=== PATIENT | female | born 1975 | race Caucasian/White ===

== ENCOUNTER → 2020-04-28 16:06 | Outpatient (CLI) | payer MEDICAID, SELFPAY | PROVIDERS: Visit Provider Family Medicine | DX: U07.1 COVID-19 (principal) | CPT/HCPCS: 87635; U0003 ==

== ENCOUNTER 2021-04-30 08:44 | Emergency (ER) | payer MEDICAID, SELFPAY ==
[2021-04-30 08:45] VITALS: BP 175/104; PULSE 101; RESP 18; TEMP 36.2; O2SAT 97; BMI 26.6
[2021-04-30 08:50] VITALS: PULSE 91; RESP 21; O2SAT 98
[2021-04-30 09:08] VITALS: O2SAT 99
--- NOTE | 2021-04-30 09:08 | EKG12_ITS ---
Test Reason : CP Blood Pressure : / mmHG Vent. Rate : 082 BPM Atrial Rate : 082 BPM P-R Int : 100 ms QRS Dur : 082 ms QT Int : 380 ms P-R-T Axes : -19 041 050 degrees QTc Int : 443 ms Sinus rhythm with short NC Otherwise normal ECG No previous ECGs available Confirmed by THEO GUAJARDO, MANUEL ([id number]), assignment desk editor ROSALES WAGNER ([id number]) on 05/05/2021 1:59:28 PM Referred By: BRYANT Confirmed By:MANUEL VENEGAS MD
--- NOTE | 2021-04-30 09:08 | RAD_ITS ---
STUDY: X-RAY CHEST REASON FOR EXAM: Female, 45 years old. Chest pain TECHNIQUE: PA and lateral views of the chest. COMPARISON: None. FINDINGS: EKG electrodes are seen. The lungs are clear and expanded. There is no demonstrated pleural abnormality. Normal size heart. Normal mediastinum and terence. Normal visualized pulmonary arteries. Normal visualized aortic arch and descending thoracic aorta. Normal visualized thoracic spine. Normal visualized ribs, clavicles, and shoulders. There is no demonstrated abnormality of the visualized soft tissue structures of the upper abdomen. RAD/Chest PA and Lateral IMPRESSION: Normal x-ray examination of the chest. Electronically Signed: Burak Watson MD at 9:41 EST , Service support ,
--- NOTE | 2021-04-30 09:08 | ED.VIS.CHEST ---
HPI History of Present Illness Chief Complaint: Chest Pain Informant: patient Narrative Narrative: Patient is a 45-year-old female that denies any significant past medical history presenting with chest pain. Patient states she has had chest pain off and on for over a year but has been worse over the past few days. She states that in the center of her chest. She states it feels more like heartburn. Pain generally last for couple minutes at a time and occur 3-4 times a day. It does not radiate. She became concerned as it occurred more frequently over the past few days and then she started having pain in her right hand which then change the tingling in her whole arm. She also developed tingling in her left arm but not as severe. She called her doctor's office recommend she come to the ER to make sure she is not having a heart attack. Patient know she also feels very anxious today. She feels short of breath but attributes that to her anxiety. She felt lightheaded while driving in here. She was a few weeks ago she had pain in her back with breathing but that is since resolved. She notes that she drinks daily, tolerably beer and 2 white claws. She denies any alcohol withdrawal symptoms if she does not have a drink. She notes she does not go to a doctor regularly. She states less time she was at the doctor was about a year ago when she was told her blood pressure was high but she never followed up further. She denies any tobacco use. She denies any history of DVT or PE. She denies any lower extremity edema. No other complaints at this time. Cannot think of any aggravating or alleviating factors. PFSH PFSH Medical History no medical history Home Medications famotidine [Pepcid] 20 mg PO BID #28 tab 04/30/21 [Rx Last Taken Unknown] Allergy/AdvReac Type Severity Reaction Status Date / Time No Known Allergies Allergy Verified 04/30/21 08:47 Family History no significant family his Surgical History no surgical history Social History Smoking Status: Former smoker ROS ROS ED Constitutional Constitutional ED: Denies chills or fever(s) Eyes Eyes: Denies blurry vision or change in vision ENT ENT ED: Denies rhinorrhea or sore throat Cardiovascular Cardiovascular: Reports chest pain; Denies palpitations or racing heartbeat Respiratory/Chest Respiratory/Chest: Denies cough or dyspnea Gastrointestinal Gastrointestinal: Denies abdominal pain, diarrhea, nausea or vomiting Genitourinary Genitourinary ED: Denies dysuria or hematuria Musculoskeletal Musculoskeletal: Denies arthralgias or myalgias Integumentary Denies rash Neurologic Neurologic: Reports paresthesias; Denies headache(s) or weakness Psychiatric Psychiatric: Reports anxiety; Denies depression EXAM Physical Exam Const Vital Signs: 04/30/21 08:45 04/30/21 08:50 04/30/21 09:08 Temperature 97.2 F L Temperature Source Temporal Pulse Rate 101 H 91 Respiratory Rate 18 21 H Blood Pressure 175/104 H Blood Pressure Mean 127 Pulse Ox 97 98 99 Oxygen Delivery Method Room Air Room Air Room Air 04/30/21 09:48 04/30/21 10:12 Temperature Temperature Source Pulse Rate 71 Respiratory Rate 16 16 Blood Pressure 155/100 H 163/96 H Blood Pressure Mean 118 118 Pulse Ox 99 96 Oxygen Delivery Method Room Air Room Air Positive well nourished and well developed General Appearance ED: well developed HEENT Reports moist mucous membranes normocephalic and atraumatic Eyes PERRL and EOMs intact bilaterally Neck no lymphadenopathy and supple Chest Wall inspection of chest normal Resp normal respiratory effort Effort and Inspection: respiratory distress Cardio regular rate, regular rhythm and no murmurs GI normal to inspection, nondistended, normoactive bowel sounds and non-tender Back/Spine no CVA tenderness Extremity normal to inspection General Extremety ED: Negative for edema or tenderness General Extremity: Negative for edema Neuro oriented x3 Sensorium / Orientation: awake and alert Motor Exam: Negative for general weakness Psych mental status grossly normal Mood & Affect: anxious Skin no rashes or lesions noted and no wounds Heart Score History: Slightly/Non-Suspicious ECG: Normal Age: </= 45 years Risk Factors: 1 or 2 Risk Factors Troponin: </= Normal Limit Score: 1 MDM MDM MDM Narrative Medical decision making narrative: Patient is evaluated for intermittent chest pain. Today she had an episode of numbness and tingling in her arm. I am not sure what to make of that. She is equal pulses. Her work-up is entirely normal. Her only risk factor for PE is her tachycardia. Her D-dimer is negative. TSH is normal. Has history troponin is normal. Given that this pain is been going on for quite some time I feel like a single high-sensitivity troponin rules out ACS. She does not have any acute ischemic changes on her EKG. I do question she could have a component of GI upset this causing her symptoms especially with her daily drinking. We will try her with a course of Pepcid. Is encouraged to follow-up with her primary care doctor for further cardiac evaluation as the cause of her symptoms is not clear. Patient verbalizes agreement understand this plan. Patient's hypertension improves without any intervention. I suspect that was more stress related. Lab Data Attestation: I reviewed the patient's lab results. Labs: Laboratory Results - last 24 hr 04/30/21 04/30/21 04/30/21 08:57 08:57 08:57 WBC 6.9 RBC 4.61 Hgb 14.1 Hct 41.8 MCV 90.7 MCH 30.6 MCHC 33.7 RDW Std Deviation 40.5 RDW Coeff of Jamila 12.2 Plt Count 266 MPV 8.9 Immature Gran % (Auto) 0.300 Neut % (Auto) 65.1 Lymph % (Auto) 24.6 [place] % (Auto) 7.5 Eos % (Auto) 2.2 Baso % (Auto) 0.3 Absolute Neuts (auto) 4.5 Absolute Lymphs (auto) 1.71 Nucleated RBC % 0 D-Dimer Quant (PE/DVT) <= 0.27 Sodium Potassium Chloride Carbon Dioxide Anion Gap BUN Creatinine Estim Creat Clear Calc Est GFR (MDRD) Af Amer Est GFR (MDRD) Non-Af BUN/Creatinine Ratio Glucose Calcium Total Bilirubin 0.70 Direct Bilirubin 0.14 AST 54 H ALT 80 H Alkaline Phosphatase 82 Troponin I High Sens Total Protein 8.5 H Albumin 4.3 Globulin 4.2 Lipase TSH 04/30/21 08:57 WBC RBC Hgb Hct MCV MCH MCHC RDW Std Deviation RDW Coeff of Jamila Plt Count MPV Immature Gran % (Auto) Neut % (Auto) Lymph % (Auto) [place] % (Auto) Eos % (Auto) Baso % (Auto) Absolute Neuts (auto) Absolute Lymphs (auto) Nucleated RBC % D-Dimer Quant (PE/DVT) Sodium 138 Potassium 4.1 Chloride 105 Carbon Dioxide 23.0 Anion Gap 10 BUN 9 Creatinine 0.89 Estim Creat Clear Calc 73.34 Est GFR (MDRD) Af Amer 89 Est GFR (MDRD) Non-Af 73 BUN/Creatinine Ratio 10.1 Glucose 92 Calcium 9.4 Total Bilirubin Direct Bilirubin AST ALT Alkaline Phosphatase Troponin I High Sens 5 Total Protein Albumin Globulin Lipase 92 TSH 2.54 Radiography Chest X-Ray - ED: 2 View, Read by ED Physician, Read by Radiologist, Normal and No Acute Disease Diagnostic Testing: Clinical Impression(s) from Imaging Studies Chest X-Ray 04/30/21 09:08 IMPRESSION: Normal x-ray examination of the chest. Electronically Signed: Burak Watson MD at 9:41 EST , Service support , Rhythm Strip Rhythm Strip: Sinus Rhythm Rate: 82 Ectopy: None EKG Initial EKG: Attestation: I personally reviewed and interpreted this EKG as follows: Interpretation: Sinus Rhythm Comments: Normal sinus rhythm at a rate of 82 MT interval is 100 Normal axis Normal QRS and QTc Normal ST segments Discharge Plan Triage Chief Complaint: Chest Pain ED Provider: Leigh Ann Monteiro Dx/Rx/DC Orders Clinical Impression: Chest pain, Elevated blood pressure reading Instructions: ED Chest Pain, Uncertain Cause Prescriptions: New famotidine [Pepcid] 20 mg tablet 20 mg PO BID Qty: 28 RF: 0 Primary Care Provider: Celio Farah Referrals: Celio Farah [Primary Care Provider] - Activity Restrictions/Additional Instructions: Please follow-up with your primary care doctor for further monitoring of your blood pressure and further evaluation of the cause of this pain. You are safe to go home at this time. Disposition Disposition: Home, Self Care
[2021-04-30 09:23] LABS: Absolute Lymphocyte Count 1.71 X10^3/uL (0.83-4.51); Absolute Neutrophil Count 4.5 X10^3/uL (2.0-7.7); Basophil# 0.02 X10^3/uL; Basophil% 0.3 % (0-1); Eosinophil# 0.15 X10^3/uL; Eosinophils% 2.2 % (0-5); Hematocrit 41.8 % (37-47); Hemoglobin 14.1 g/dL (12.0-15.0); Lymphocyte # 1.71 X10^3/ul (0.83-4.51); Lymphocyte % 24.6 % (19-41); Mean Corp Hgb Conc 33.7 g/dL (32-36); Mean Corpuscular Hgb 30.6 pg (27.0-32.0); Mean Corpuscular Volume 90.7 fL (81-99); Mean Platelet Vol. 8.9 fl (6.2-12.0); Monocyte# 0.52 X10^3/uL; Monocyte% 7.5 % (0-10); NRBC Flagged by Analyzer 0 % (0-5); Neutrophil # 4.52 X10^3/uL (2.7-7.7); Neutrophil % 65.1 % (47-70); Platelet Count 266 K/mm3 (150-450); RBC Distribution Width CV 12.2 % (11.6-14.6); RBC Distribution Width SD 40.5 fl (35.1-43.9); Red Blood Count 4.61 M/mm3 (4.2-5.4); White Blood Count 6.9 K/mm3 (4.4-11.0)
[2021-04-30 09:43] LABS: AST(SGOT) 54 U/L (15-37); Alanine Aminotransfer ALT/SGPT 80 U/L (13-56); Albumin, Serum 4.3 g/dL (3.2-5.0); Alkaline Phosphatase 82 U/L (45-117); Bilirubin, Direct 0.14 mg/dL (0.00-0.30); Globulin 4.2 g/dL (2.2-4.2); Protein, Total 8.5 g/dL (6.4-8.2)
[2021-04-30 09:47] LABS: Anion Gap 10 (5-15); BUN 9 mg/dL (7-18); BUN/Creat Ratio 10.1 RATIO (10-20); Calcium,Total 9.4 mg/dL (8.5-10.1); Chloride 105 mmol/L (98-107); Creatinine, Serum 0.89 mg/dL (0.55-1.02); EST Glomerular Filtration Rate 73 mL/min (>60); Est Glom Filt Rate - Afr Amer 89 mL/min (>60); Estimated Creatinine Clearance 73.34 ml/min; Glucose 92 mg/dL (74-106); Lipase 92 U/L (73-393); Potassium 4.1 mmol/L (3.5-5.1); Sodium Level 138 mmol/L (136-145); Thyroid Stim Hormone (TSH) 2.54 uIU/mL (0.358-3.74); Troponin-I HS 5 pg/mL (3.0-54.0)
[2021-04-30 09:48] VITALS: BP 155/100; PULSE 71; RESP 16; O2SAT 99
[2021-04-30 10:09] LABS: D-Dimer Quantitative (DVT/PE) <= 0.27 FEU/ug/m (0.27-0.49)
[2021-04-30 10:12] VITALS: BP 163/96; RESP 16; O2SAT 96
[2021-04-30 10:44] VITALS: BP 167/95; PULSE 82; RESP 22; O2SAT 100
== END 2021-04-30 10:49 | disposition home or self-care (01) ==
PROVIDERS: Emergency Provider Emergency Medicine
DX: R07.9 Chest pain, unspecified (principal); R03.0 Elevated blood-pressure reading, without diagnosis of hypertension; Z87.891 Personal history of nicotine dependence
CPT/HCPCS: 71046; 80048; 80076; 83690; 84443; 84484; 85025; 85379; 93005; 99285; A4216

== ENCOUNTER 2021-09-25 09:37 | Outpatient (CLI) | payer MEDICAID, SELFPAY ==
[2021-09-25 10:14] LABS: Hematocrit 38.3 % (37-47); Hemoglobin 12.8 g/dL (12.0-15.0); Mean Corp Hgb Conc 33.4 g/dL (32-36); Mean Corpuscular Hgb 31.9 pg (27.0-32.0); Mean Corpuscular Volume 95.5 fL (81-99); Platelet Count 351 K/mm3 (150-450); RBC Distribution Width CV 11.5 % (11.6-14.6); RBC Distribution Width SD 40.4 fl (35.1-43.9); Red Blood Count 4.01 M/mm3 (4.2-5.4); White Blood Count 9.5 K/mm3 (4.4-11.0)
[2021-09-25 10:33] LABS: AST(SGOT) 18 U/L (15-37); Alanine Aminotransfer ALT/SGPT 19 U/L (13-56); Alkaline Phosphatase 78 U/L (45-117); Anion Gap 6 (5-15); BUN 13 mg/dL (7-18); BUN/Creat Ratio 17.2 RATIO (10-20); Calcium,Total 8.1 mg/dL (8.5-10.1); Chloride 101 mmol/L (98-107); Cholesterol 260 mg/dL (200); Creatinine, Serum 0.76 mg/dL (0.55-1.02); EST Glomerular Filtration Rate 88 mL/min (>60); Est Glom Filt Rate - Afr Amer 107 mL/min (>60); Globulin 3.9 g/dL (2.2-4.2); Glucose 93 mg/dL (74-106); High Density Lipoprotein 80 mg/dL; Potassium 3.4 mmol/L (3.5-5.1); Protein, Total 7.9 g/dL (6.4-8.2); Sodium Level 134 mmol/L (136-145); Triglycerides 292 mg/dL; Very Low Density Lipoprotein 58 mg/dL (5-40)
== END 2021-09-25 23:59 | disposition home or self-care (01) ==
LOC: LAB 09:39
PROVIDERS: Referring Provider Registered Nurse; Visit Provider Registered Nurse
DX: I10 Essential (primary) hypertension (principal)
CPT/HCPCS: 36415; 80053; 80061; 85027

== ENCOUNTER → 2022-10-22 | Outpatient (CLI) | payer MEDICAID, SELFPAY ==
[2022-10-22 11:06] LABS: Anion Gap 8 (5-15); BUN 13 mg/dL (7-18); BUN/Creat Ratio 15.3 RATIO (10-20); Calcium,Total 9.1 mg/dL (8.5-10.1); Chloride 103 mmol/L (98-107); Cholesterol 301 mg/dL (200); Creatinine, Serum 0.85 mg/dL (0.55-1.02); EST Glomerular Filtration Rate 77 mL/min (>60); Est Glom Filt Rate - Afr Amer 93 mL/min (>60); Follicle Stimulating Hormone 64.7 mIU/mL; Glucose 91 mg/dL (74-106); High Density Lipoprotein 68 mg/dL; Luteinizing Hormone 25.6 mIU/mL; Potassium 4.1 mmol/L (3.5-5.1); Sodium Level 137 mmol/L (136-145); Triglycerides 693 mg/dL
[2022-10-29 12:09] LABS: Estrogen, Total, Serum 57 pg/mL (.)
== END | disposition home or self-care (01) ==
LOC: MFPLAB 09:34
PROVIDERS: PCP Family Medicine; Visit Provider Family Medicine
DX: N95.1 Menopausal and female climacteric states (principal); I10 Essential (primary) hypertension
CPT/HCPCS: 36415; 80048; 80061; 82672; 83001; 83002

== ENCOUNTER → 2023-02-16 | Outpatient (CLI) | payer MEDICAID, SELFPAY ==
[2023-02-16 16:33] LABS: Thyroid Stim Hormone (TSH) 3.59 uIU/mL (0.358-3.74)
== END | disposition home or self-care (01) ==
LOC: LAB 14:35
PROVIDERS: PCP Family Medicine; Referring Provider Internal Medicine Cardiovascular Disease; Visit Provider Internal Medicine Cardiovascular Disease
DX: R00.0 Tachycardia, unspecified (principal); I10 Essential (primary) hypertension
CPT/HCPCS: 36415; 84443

== ENCOUNTER → 2023-03-09 | Outpatient (CLI) | payer MEDICAID, SELFPAY ==
--- NOTE | 2023-03-09 10:51 | ECHOD_ITS ---
Reason For Study: Palps Procedure This was a 2D Doppler, Color Flow transthoracic echocardiogram. Exam performed in department. Left Ventricle Normal LV size. Left ventricular systolic function is normal. The estimated ejection fraction is 65 %. Normal diastology for age. No regional wall motion abnormalities noted. Right Ventricle Normal RV size. Normal systolic function. Atria Normal left atrium. Normal right atrium. Mitral Valve Normal mitral valve. Trivial eccentric mitral valve insufficiency. Tricuspid Valve Normal tricuspid valve. Mild tricuspid valve insufficiency. Pulmonary artery systolic pressure is 30 mmHg. Great Vessels Normal aortic root. The pulmonary artery is normal size. Normal inferior vena cava. Pericardium/Pleural No pericardial effusion. MMode/2D Measurements & Calculations LVIDd: 4.2 cm IVSd: 1.2 cm Ao root diam: 3.4 cm LVIDs: 2.4 cm LVPWd: 0.82 cm RVDd: 2.7 cm FS: 43.4 % LAV(MOD-bp): 36.9 ml LVAd ap4: 26.1 cm2 LVAd ap2: 24.7 cm2 LAV(MOD-bp) Indexed: 19.2 ml/m2 LVLd ap4: 7.8 cm LVLd ap2: 8.5 cm LAV(MOD-sp2): 34.2 ml EDV(MOD-sp4): 72.6 ml EDV(MOD-sp2): 62.4 ml LAV(MOD-sp4): 40.4 ml EDV(sp4-el): 74.6 ml EDV(sp2-el): 61.0 ml LVAs ap4: 14.0 cm2 LVAs ap2: 14.6 cm2 LVLs ap4: 6.3 cm LVLs ap2: 6.9 cm ESV(MOD-sp4): 26.7 ml ESV(MOD-sp2): 27.3 ml ESV(sp4-el): 26.6 ml ESV(sp2-el): 26.3 ml EF(MOD-sp4): 63.2 % EF(MOD-sp2): 56.2 % EF(sp4-el): 64.4 % SV(MOD-sp4): 45.8 ml SV(MOD-sp2): 35.1 ml SV(sp4-el): 48.0 ml LA A4 area: 15.2 cm2 LA dimension(2D): 3.2 cm RA A4 area: 10.4 cm2 TAPSE: 1.7 cm Time Measurements MV dec time: 0.28 sec Doppler Measurements & Calculations MV E max cody: 73.2 cm/sec Lat Peak E' Cody: 8.8 cm/sec Med Peak E' Cody: 8.9 cm/sec MV A max cody: 100.3 cm/sec E/E' lat: 8.3 E/E' med: 8.3 MV E/A: 0.73 MV dec slope: 259.0 cm/sec2 Ao V2 max: 145.9 cm/sec LV V1 max: 118.7 cm/sec Ao max P.5 mmHg LV V1 max P.6 mmHg PA V2 max: 95.8 cm/sec TR max cody: 252.2 cm/sec TR max P.4 mmHg ECHO/Echo Complete Interpretation Summary Normal LV size. Left ventricular systolic function is normal. The estimated ejection fraction is 65 %. Pulmonary artery systolic pressure is 30 mmHg. Ordering Physician: Chaka Ritter Referring Physician: Joey Dinero Performed By: Celeste Abraham RDCS
== END | disposition home or self-care (01) ==
LOC: CVS 10:50
PROVIDERS: PCP Family Medicine; Referring Provider Internal Medicine Cardiovascular Disease; Visit Provider Internal Medicine Cardiovascular Disease
DX: R00.0 Tachycardia, unspecified (principal)
CPT/HCPCS: 93306

== ENCOUNTER → 2023-12-06 | Outpatient (CLI) | payer MEDICAID, SELFPAY ==
[2023-12-06 12:34] LABS: Absolute Lymphocyte Count 1.65 X10^3/uL (0.83-4.51); Absolute Neutrophil Count 4.7 X10^3/uL (2.0-7.7); Basophil# 0.02 X10^3/uL; Basophil% 0.3 % (0-1); Eosinophil# 0.19 X10^3/uL; Eosinophils% 2.7 % (0-5); Hematocrit 42.3 % (37-47); Hemoglobin 13.7 g/dL (12.0-15.0); Lymphocyte # 1.65 X10^3/ul (0.83-4.51); Lymphocyte % 23.4 % (19-41); Mean Corp Hgb Conc 32.4 g/dL (32-36); Mean Corpuscular Hgb 30.1 pg (27.0-32.0); Mean Platelet Vol. 9.1 fl (6.2-12.0); Monocyte# 0.42 X10^3/uL; NRBC Flagged by Analyzer 0 % (0-5); Neutrophil # 4.74 X10^3/uL (2.7-7.7); Neutrophil % 67.3 % (47-70); Platelet Count 267 K/mm3 (150-450); RBC Distribution Width CV 12.1 % (11.6-14.6); RBC Distribution Width SD 41.1 fl (35.1-43.9); Red Blood Count 4.55 M/mm3 (4.2-5.4)
[2023-12-06 13:00] LABS: Vitamin D,25 Hydroxy 40.6 ng/mL
[2023-12-06 13:10] LABS: AST(SGOT) 20 U/L (15-37); Alanine Aminotransfer ALT/SGPT 26 U/L (13-56); Albumin, Serum 4.1 g/dL (3.2-5.0); Alkaline Phosphatase 92 U/L (45-117); Anion Gap 8 (5-15); BUN 13 mg/dL (7-18); BUN/Creat Ratio 15.5 RATIO (10-20); Calcium,Total 9.3 mg/dL (8.5-10.1); Chloride 102 mmol/L (98-107); Cholesterol 287 mg/dL (200); Creatinine, Serum 0.84 mg/dL (0.55-1.02); EST Glomerular Filtration Rate 77 mL/min (>60); Est Glom Filt Rate - Afr Amer 94 mL/min (>60); Glucose 96 mg/dL (74-106); High Density Lipoprotein 67 mg/dL; Potassium 3.6 mmol/L (3.5-5.1); Protein, Total 8.1 g/dL (6.4-8.2); Sodium Level 135 mmol/L (136-145); Thyroid Stim Hormone (TSH) 3.21 uIU/mL (0.358-3.74); Triglycerides 220 mg/dL; Very Low Density Lipoprotein 44 mg/dL (5-40)
[2023-12-06 13:48] LABS: Hemoglobin A1c 5.2 % (3.8-5.6)
== END | disposition home or self-care (01) ==
LOC: VSLAB 11:16
PROVIDERS: PCP Family Medicine; Visit Provider Nurse Practitioner Family
DX: I10 Essential (primary) hypertension (principal); E78.5 Hyperlipidemia, unspecified; E66.9 Obesity, unspecified; E55.9 Vitamin D deficiency, unspecified; S99.922A Unspecified injury of left foot, initial encounter
CPT/HCPCS: 36415; 80053; 80061; 82306; 83036; 84443; 85025

== ENCOUNTER → 2023-12-07 | Outpatient (CLI) | payer MEDICAID, SELFPAY ==
--- NOTE | 2023-12-07 07:24 | RAD_ITS ---
STUDY: X-RAY - LEFT FOOT CLINICAL: Female, 48 years old. Dropped something heavy on top of foot 11-13-23, continued pain top of foot. TECHNIQUE: 3 views of the left foot. COMPARISON: None. FINDINGS: Normal talus, calcaneus, and tarsal bones. Normal visualized subtalar, talonavicular, calcaneocuboid, tarsal and tarsometatarsal articulations. Normal metatarsi. Normal metatarsophalangeal joint of the great toe. Normal tibial and fibular sesamoid bones. Normal interphalangeal joint of the great toe. Normal phalanges of the great toe. Normal second through fifth metatarsophalangeal joints. Normal interphalangeal joints and phalanges of the lesser toes. The soft tissue structures are unremarkable. There is no demonstrated fracture. RAD/Foot min 3 Views IMPRESSION: Normal x-ray examination of the left foot. Electronically Signed: Lennox Reyes MD at 15:54 EDT ,
== END | disposition home or self-care (01) ==
LOC: RAD 07:15
PROVIDERS: PCP Nurse Practitioner Family; Referring Provider Nurse Practitioner Family; Visit Provider Nurse Practitioner Family
DX: S99.922A Unspecified injury of left foot, initial encounter (principal); X58.XXXA Exposure to other specified factors, initial encounter
CPT/HCPCS: 73630

== ENCOUNTER → 2024-01-16 | Outpatient (CLI) | payer MEDICAID, SELFPAY ==
--- NOTE | 2024-01-16 07:05 | BI_ITS ---
MAMMOGRAPHY - BILATERAL SCREENING REASON FOR EXAM: Female, 48 years old. Routine annual screening examination. PERTINENT HISTORY: Non-contributory. TECHNIQUE: Digital bilateral breast kaleigh (3D mammographic acquisition) in the CC and MLO projections. 2-D mediolateral oblique (MLO) and craniocaudad (CC) views of both breasts were obtained. CAD: Full Field Digital Mammography with Computer Added Detection was performed. COMPARISON: None. Baseline examination. FINDINGS: Breast Composition: There are scattered areas of fibroglandular density. There are no dominant masses or suspicious calcifications. No other significant abnormalities are identified. BI/SCRN MAMM (CAD)W/[place] BILAT IMPRESSION: Negative screening mammogram. Yearly followup mammogram recommended. (A) ASSESSMENT CATEGORY: BIRADS Category 1: Negative. A letter regarding these results will be sent to the patient by the facility within 30 days. Approximately 10% of breast cancers are not detected by mammography. A normal mammogram should not delay biopsy of a clinically suspicious abnormality. [id number] Electronically Signed: Burak Watson MD at 8:43 EDT ,
== END | disposition home or self-care (01) ==
LOC: OPBI 07:15
PROVIDERS: PCP Nurse Practitioner Family; Referring Provider Nurse Practitioner Family; Visit Provider Nurse Practitioner Family
DX: Z12.31 Encounter for screening mammogram for malignant neoplasm of breast (principal)
CPT/HCPCS: 77063; 77067

== ENCOUNTER 2024-01-20 06:53 | Day surgery (SDC) | payer MEDICAID, SELFPAY ==
[2024-01-20] VITALS (7 sets, daily range): BP systolic 97–136; BP diastolic 66–111; PULSE 73–82; RESP 16; TEMP 36.4–36.7; O2SAT 96–100; BMI 30.4
[2024-01-20] MEDS: Lactated Ringers 1,000 ML 15 ML IV (07:21)
--- NOTE | 2024-01-20 07:23 | PCM.PRE.AN2 ---
ASA Classification* ASA Classification ASA Classification: 2 Assessment & Plan Anesthesia* Anesthesia Assessment Anesthesia Assessment: Discussed sedation and/or anesthesia options, risks, benefits, and alternatives with patient/parents/legal guardian/POA. Questions invited. The patient/parents/legal guardian/POA seems to understand and agrees to proceed with anesthesia plan. Reviewed the physical assessment, medical history, allergy history and patient home medications list prior to surgery/procedure/anesthetic and documented any changes. Performed airway and anesthesia risk assessments. Anesthesia Type Anesthesia Type: MAC (see written pre anesthesia record for full assessment) Anesthesia Focused Assessment* Temperature: 97.6 F Pulse Rate: 82 Blood Pressure: 136/95 Respiratory Rate: 16 Pulse Ox: 99 Airway Assessment Mouth opens: >3 cm Mallampati Score: II Focused Labs Anesthesia Preop lab: CBC WBC 7.0 K/mm3 (4.4-11.0) 12/06/23 11:17 RBC 4.55 M/mm3 (4.2-5.4) 12/06/23 11:17 Hgb 13.7 g/dL (12.0-15.0) 12/06/23 11:17 Hct 42.3 % (37-47) 12/06/23 11:17 Plt Count 267 K/mm3 (150-450) 12/06/23 11:17 CHEMISTRY Potassium 3.6 mmol/L (3.5-5.1) 12/06/23 11:17 Sodium 135 mmol/L (136-145) L 12/06/23 11:17 BUN 13 mg/dL (7-18) 12/06/23 11:17 Creatinine 0.84 mg/dL (0.55-1.02) 12/06/23 11:17 Glucose 96 mg/dL (74-106) 12/06/23 11:17 TSH 3.21 uIU/mL (0.358-3.74) 12/06/23 11:17 COAG Pre-Assessment Diagnosis/Proposed Procedure Planned Operative Procedure(s): COLONOSCOPY-OA Anesthesia History 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 When Was Last Pacemaker Check QUESTION #4 FULL TEXT: You/Your Family Experience fever (hyperthermia) with Anesthesia Last Oral Intake Last Oral intake: Last Oral Intake NPO since 04:00 01/20/24 07:08 Meds taken in AM with sips of Yes 01/20/24 07:08 water? Meds patient instructed to see med list 01/20/24 07:08 take am of surgery PONV PONV - dust control engineer: PONV - dust control engineer Female Yes 01/17/24 13:21 HX of Motion Sickness Yes 01/17/24 13:21 HX of N/V After Surgery No 01/17/24 13:21 Non-Smoker Yes 01/17/24 13:21 Duration of Surgery greater No 01/17/24 13:21 than 60 minutes Number of Risk Factors 3 01/17/24 13:21 PONV Score Moderate Risk 01/17/24 13:21 Height & Weight Height & Weight: Anesthesia: Height & Weight Height 5 ft 5 in 01/20/24 07:08 Weight: 83 kg 01/20/24 07:08 Body Mass Index (BMI) 30.4 01/20/24 07:08 Respiratory Assessment Respiratory Assessment - dust control engineer: Respiratory Tract Infection Hx - dust control engineer Hx Respiratory Tract Infection No 01/17/24 13:21 STOP Sleep Apnea STOP Sleep Apnea - dust control engineer: STOP Sleep Apnea - dust control engineer Hx Hypertension Yes: CONTROLLED ON MED 01/17/24 13:21 Hx Sleep Apnea No 01/17/24 13:21 CPAP BIPAP Do you snore loudly (louder No 01/17/24 13:21 than talking or can be heard Do you often feel tired/ No 01/17/24 13:21 fatigued/ sleepy during daytime? Has anyone observed you stop No 01/17/24 13:21 breathing during sleep? STOP Results Negative 01/17/24 13:21 QUESTION #5 FULL TEXT : Do you snore loudly (louder than talking or can be heard through closed doors)? Tobacco Use History Tobacco Use History - dust control engineer: Tobacco Use History - dust control engineer Tobacco Use Smoking Status Former smoker 01/17/24 13:21 Hx Tobacco Use No 01/17/24 13:21 Years Smoking Packs Smoked per Day Smoking Cessation Date was No - quit smoking greater 01/17/24 13:21 within the last 15 years than 15 years ago Hx Smoking Cessation Date 06/13/99 01/17/24 13:21 Hx Smoking Cessation Counseling Hematologic Medial History Hematologic Hx - dust control engineer: Hematologic Medical Hx - risk officer Hx of Blood Transfusion No 01/17/24 13:21 Hx of Transfusion in last 3 No 01/17/24 13:21 Months Date of Last Transfusion (if within last 3 months) Ever experience any problems No 01/17/24 13:21 with transfusion(s)? Specify any problems Hx of Preganancy in last 3 No 01/17/24 13:21 Months Nurse Filling Out Transfusion VCHRISTIN 01/17/24 13:21 & Questions: Date: 01/17/24 01/17/24 13:21 Time: 13:22 01/17/24 13:21 Patient unable to answer at this time (ie. confused, unrespo /Reproduction History /Reproductive History - dust control engineer: /Reproductive Hx- dust control engineer Hx Now No 01/17/24 13:21 Gestational Age (in weeks): EDC: Hx Hx Para Hx Section SAB No 01/17/24 13:21 Active Medications Active Medications: Current Medications Generic Name Dose Route Start Last Admin Trade Name Freq PRN Reason Stop Dose Admin Lactated Ringer's 1,000 mls @ 15 mls/hr 01/20/24 07:00 01/20/24 07:21 IV 15 mls/hr .Q48H WILLIE Administration PFSH Medical History Hypertension Wears contact lenses Wears glasses Cancer Anxiety Alcohol use Syncope Gastric reflux Former smoker Asthma History of Holter monitoring History of echocardiogram Cardiology follow-up encounter Hyperlipidemia Depression Tachycardia Palpitations Essential hypertension Home Medications ?Medication ?Instructions ?Recorded ?Last Taken ?Type lisinopril 10 mg tablet 10 mg PO DAILY 12/16/22 01/20/24 History rosuvastatin 5 mg tablet 5 mg PO DAILY 02/16/23 Unknown History collagen,hydrolysate 500 mg-biotin 2 cap PO .QD 01/10/24 Unknown History 800 mcg-ascorbic acid 50 mg capsule (Collagen 1500 Plus C) propranolol 20 mg tablet 20 mg PO BID PRN anxiety 01/10/24 01/20/24 History sertraline 50 mg tablet 50 mg PO DAILY 01/10/24 Unknown History Allergy/AdvReac Type Severity Reaction Status Date / Time amoxicillin Allergy Unknown Hives Verified 01/20/24 07:08 Family History Grandfather Myocardial infarction Father Hypertension Surgical History Hx of wisdom tooth extraction History of tubal ligation Social History Smoking Status: Former smoker how long ago did patient quit smokin alcohol intake: current alcohol intake frequency: 3 or more drinks per day Alcohol type: beer and wine substance use type: does not use caffeine: Yes (2 times per week) Review of Systems (Anesthesia) ROS Narrative System reviewed and no additional complaints, except as documented.
--- NOTE | 2024-01-20 08:09 | HP.PCM_ITS ---
HPI - General HPI Narrative LEAH BURGER, is a 48 F who presents for screening colonoscopy. She has never had a colonoscopy in the past. She denies abdominal pain or blood in the stool but she does say she feels like she does not adequately empty when she has a bowel movement. She denies family history of colon cancer. [facility] Medical History Hypertension Wears contact lenses Wears glasses Cancer Anxiety Alcohol use Syncope Gastric reflux Former smoker Asthma History of Holter monitoring History of echocardiogram Cardiology follow-up encounter Hyperlipidemia Depression Tachycardia Palpitations Essential hypertension Home Medications ?Medication ?Instructions ?Recorded ?Last Taken ?Type lisinopril 10 mg tablet 10 mg PO DAILY 12/16/22 01/20/24 History rosuvastatin 5 mg tablet 5 mg PO DAILY 02/16/23 Unknown History collagen,hydrolysate 500 mg-biotin 2 cap PO .QD 01/10/24 Unknown History 800 mcg-ascorbic acid 50 mg capsule (Collagen 1500 Plus C) propranolol 20 mg tablet 20 mg PO BID PRN anxiety 01/10/24 01/20/24 History sertraline 50 mg tablet 50 mg PO DAILY 01/10/24 Unknown History Allergy/AdvReac Type Severity Reaction Status Date / Time amoxicillin Allergy Unknown Hives Verified 01/20/24 07:08 Family History Grandfather Myocardial infarction Father Hypertension Surgical History Hx of wisdom tooth extraction History of tubal ligation Social History Smoking Status: Former smoker how long ago did patient quit smokin alcohol intake: current alcohol intake frequency: 3 or more drinks per day Alcohol type: beer and wine substance use type: does not use caffeine: Yes (2 times per week) Past Medical/Surgical History Planned Operation Planned Operative Procedure(s): COLONOSCOPY-OA Previous Hospitalizations/Surgeries HX Hospitalizations: No Any Problems With Anesthesia: No You/Your Family Experience Fever (Hyperthermia) With Anes: No Cholinesterase deficiency: No Cardiovascular Hx Hypertension: Yes (CONTROLLED ON MED) Respiratory Hx Sleep Apnea: No Hx Respiratory Tract Infection/Cold (presently): No Do You Snore Loudly (louder than talking or can be heard): No Do You Often Feel Tired/ Fatigued/ Sleepy Dring Daytime?: No Has Anyone Observed You Stop Breathing During Sleep?: No Result (for STOP score): Negative Smoking Status: Former smoker Neurological Does patient have nerve stimulator: No Reproduction : No Miscellaneous Recent Exposure to Contagious Disease: No Allergies amoxicillin Allergy (Unknown, Verified 01/20/24 07:08) Hives Discharge Is Pt Admitted From a [facility], or a [facility]: No After D/C, Where Do you Plan to Go: Return Home Vital Signs Vital Signs Vital Signs: 01/20/24 07:08 01/20/24 07:08 01/20/24 07:23 Temperature 97.6 F L 97.6 F L Temperature Source Temporal Pulse Rate 82 82 Respiratory Rate 16 16 Respiratory Pattern Normal Blood Pressure 136/95 H 136/95 H Blood Pressure Mean 108 Blood Pressure Source Monitor Blood Pressure Position Sitting Blood Pressure Location Left Arm Pulse Ox 99 99 Oxygen Delivery Method Room Air Weight Weight: 182 lb 15.739 oz Body Mass Index (BMI) 30.4 Physical Exam Const alert and oriented x3 HEENT normocephalic Eyes PERRL Resp normal respiratory effort and normal air movement Cardio regular rate and regular rhythm GI soft to palpation, non-tender and non-distended Extremity normal to inspection Assessment & Plan Assessment/Plan (1) Encounter for screening for malignant neoplasm of colon: PLAN: I explained endoscopy in detail to the patient. I explained the risks including but not limited to stroke or heart attack with anesthesia, perforation of the GI tract, bleeding, infection. I explained that any of these could necessitate further emergency surgery. The patient understands and all questions were answered sufficiently. The patient wishes to proceed with procedure. Lobo Sommers MD Pager: [facility] [address] [place] [address] Office: Surgery Risks - Colonoscopy Risks Include but are not Limited To: Risks include but are not limited to: Bleeding, perforation requiring further surgery, inability to complete colonoscopy requiring barium enema.
--- NOTE | 2024-01-20 08:34 | OP.COLON_ITS ---
Patient Name: Brittney Mendes Procedure Date: 01/20/2024 8:11 AM Date of : 1975 Age: 48 Procedure: Colonoscopy Indications: Screening for colorectal malignant neoplasm Providers: Lobo Sommers MD Referring MD: Savannah Rhodes [facility], [employer] Medicines: Propofol per Anesthesia Patient Profile: This is a 48 year old female. Refer to note in patient chart for documentation of history and physical. Last Colonoscopy: none. The patient's first colonoscopy is today. Complications: No immediate complications. Procedure: Pre-Anesthesia Assessment: - Prior to the procedure, a History and Physical was performed, and patient medications and allergies were reviewed. The patient's tolerance of previous anesthesia was also reviewed. The risks and benefits of the procedure and the sedation options and risks were discussed with the patient. All questions were answered, and informed consent was obtained. Prior Anticoagulants: The patient has taken no anticoagulant or antiplatelet agents. After reviewing the risks and benefits, the patient was deemed in satisfactory condition to undergo the procedure. After I obtained informed consent, the scope was passed under direct vision. Throughout the procedure, the patient's blood pressure, pulse, and oxygen saturations were monitored continuously. The Colonoscope was introduced through the anus and advanced to the cecum, identified by appendiceal orifice and ileocecal valve. The colonoscopy was performed without difficulty. The patient tolerated the procedure well. The quality of the bowel preparation was good. The ileocecal valve, appendiceal orifice, and rectum were photographed. Scope In: 8:21:24 AM Scope Withdrawal Time 0 hours 2 minutes 39 seconds Scope Out: 8:31:41 AM Total Procedure Duration Time 0 hours 10 minutes 17 seconds Findings: The entire examined colon appeared normal on direct and retroflexion views. Impression: - The entire examined colon is normal on direct and retroflexion views. - No specimens collected. Recommendation: - Discharge patient to home. - Resume previous diet. - Continue present medications. - Repeat colonoscopy in 10 years for screening purposes. Procedure Code(s): --- Professional --- 42139, Colonoscopy, flexible; diagnostic, including collection of specimen(s) by brushing or washing, when performed (separate procedure) Diagnosis Code(s): --- Professional --- Z12.11, Encounter for screening for malignant neoplasm of colon CPT copyright 2021 [employer]. All rights reserved. The codes documented in this report are preliminary and upon railway signal electrician review may be revised to meet current compliance requirements. Lobo Sommers MD 01/20/2024 8:33:40 AM This report has been signed electronically. Number of Addenda: 0 Note Initiated On: 01/20/2024 8:11 AM
--- NOTE | 2024-01-20 08:34 | OP.CCLET_ITS ---
01/20/[address] [facility], [employer] Re : Colonoscopy procedure for Brittney Mendes Dear Carmelo This procedure was performed on Saturday, January 20, 2024. My impressions and recommendations are as follows: Impressions : - The entire examined colon is normal on direct and retroflexion views. - No specimens collected. Recommendations : - Discharge patient to home. - Resume previous diet. - Continue present medications. - Repeat colonoscopy in 10 years for screening purposes. My findings are described in the full procedure note, which is enclosed. If I can be of further assistance, please feel free to contact me at Doctor phone number(s): , Work: . Sincerely, Lobo Sommers MD 01/20/2024 8:33:40 AM This report has been signed electronically.
--- NOTE | 2024-01-20 08:47 | PCM.POST.ANE ---
Anesthesia: Postop Eval I Current Vital Signs Temperature: 97.6 F Pulse Rate: 74 Blood Pressure: 124/111 Respiratory Rate: 16 Pulse Ox: 97 Oxygen Delivery Method: Room Air Assessment Airway patent: Yes Spontaneous unlabored respirations: Yes Mental status: Awake and Calm nausea: No Vomiting: No Anesthesia Complication: No Fluid Hydration Crystalloid volume administer (ml): 600 Total IV fluid infused: 600 Progress Note Anesthesia document: Postop Eval 1 completed: Yes
--- NOTE | 2024-01-20 09:45 | PCM.POSTANE2 ---
Anesthesia Postop Eval I Sum Postop Eval Completion status Anesthesia document: Postop Eval 1 completed: Yes Anesthesia Postop Eval I Summary Anesthesia Postop Eval I Summary: Anesthesia Postop Eval I: Assessment Summary Airway patent Yes 01/20/24 08:49 [email or web address] Spontaneous unlabored Yes 01/20/24 08:49 [email or web address] respirations Mental status Awake,Calm 01/20/24 08:49 [email or web address] nausea No 01/20/24 08:49 [email or web address] Vomiting No 01/20/24 08:49 [email or web address] Anesthesia Postop Eval I: Fluid Summary Crystalloid volume administer 600 01/20/24 08:49 [email or web address] (ml) Colloids volume administered ( ml) Blood Product volume administered (ml) Total IV fluid infused 600 01/20/24 08:49 [email or web address] Anesthesia Postop Eval I: Summary Notes Anesthesia Complication No 01/20/24 08:49 [email or web address] Anesthesia Complication Comment: Post-operative progress note Anesthesia: Postop Eval II Evaluation Mental status: Awake Pain Level: 0 nausea: No Vomiting: No
== END 2024-01-20 09:11 | disposition home or self-care (01) ==
LOC: EN 06:55 → AC 06:56
PROVIDERS: PCP Nurse Practitioner Family; Referring Provider Nurse Practitioner Family; Visit Provider Surgery
PROC: 0DJD8ZZ Inspection of Lower Intestinal Tract, Via Natural or Artificial Opening Endoscopic (ICD-10-PCS; CPT 45378; principal; 2024-01-20 07:55)
DX: Z12.11 Encounter for screening for malignant neoplasm of colon (principal); I10 Essential (primary) hypertension; Z87.891 Personal history of nicotine dependence; E78.5 Hyperlipidemia, unspecified; K21.9 Gastro-esophageal reflux disease without esophagitis; J45.909 Unspecified asthma, uncomplicated; F41.9 Anxiety disorder, unspecified; F32.A Depression, unspecified; Z79.899 Other long term (current) drug therapy
CPT/HCPCS: 45378; J7120; J2405